=== PATIENT | male | born 1985 | race Caucasian/White ===

== ENCOUNTER 2018-03-17 09:17 | Day surgery (SDC) | payer BC ==
[~2018-03-17] VITALS: Ht 180.3 cm; Wt 80.5 kg
== END 2018-03-17 14:34 | disposition home or self-care (01) ==
LOC: ORSCSDS 09:17
PROVIDERS: Orthopaedic Surgery
PROC: 0PSP34Z Reposition Right Metacarpal with Internal Fixation Device, Percutaneous Approach (ICD-10-PCS; principal; 2018-03-17 10:45)
DX: S62.314A Displaced fracture of base of fourth metacarpal bone, right hand, initial encounter for closed fracture (principal); S62.316A Displaced fracture of base of fifth metacarpal bone, right hand, initial encounter for closed fracture
CPT/HCPCS: J0690; J1170; J2250; J3010; J7120